=== PATIENT | female | born 1985 | race Caucasian/White ===

== ENCOUNTER 2019-06-25 02:48 | Inpatient (IN) ==
[2019-06-25] MEDS ORDERED: *HR* FentaNYL (PF) 100 MCG/2 ML VIAL IVP PRN (03:10)
[2019-06-25] MEDS ORDERED: Naloxone 0.4 MG/ML INJ IVP PRN (03:10)
[2019-06-25] MEDS ORDERED: Lidocaine 1% 20 ML MDV INFILT PRN (03:10)
[2019-06-25] MEDS ORDERED: Metoclopramide 10 MG/2 ML VIAL IVP PRN (03:10)
[2019-06-25] MEDS ORDERED: Famotidine 20 MG/2 ML VIAL IVP PRN (03:10)
[2019-06-25] MEDS ORDERED: Ringers Solution, Lactated 1,000 ML IVC SCH (03:15)
[2019-06-25 03:31] LABS: Basophils % 0.3 %; Eosinophils # 0.2 K/mcL (0.0-0.6); Eosinophils % 1.9 %; Hematocrit 37.1 % (35.3-44.9); Hemoglobin 12.6 g/dL (11.5-15.4); Immature Granulocytes % 0.6 % (0-4); Lymphocytes # 2.5 K/mcL (0.6-4.6); Lymphocytes % 20.3 %; Mean Corpuscular Hemoglobin 31.5 pg (28.0-33.3); Mean Corpuscular Volume 92.8 fL (83.0-100.0); Mean Platelet Volume 10.1 fL (9.4-12.4); Monocytes # 0.7 K/mcL (0.0-1.3); Monocytes % 5.5 %; Neutrophils # 8.8 K/mcL (1.6-8.9); Platelet Count 253 K/mcL (140-400); Red Cell Distribution Width 12.8 % (11.5-14.5); Segmented Neutrophils % 71.4 %; White Blood Count 12.3 K/mcL (4.3-11.1)
[2019-06-25 03:43] LABS: Amphetamine Screen,Urine Negative ng/mL (Cutoff=1000); Barbiturate Screen,Urine Negative ng/mL (Cutoff=200); Benzodiazepines Screen,Urine Negative ng/mL (Cutoff=200); Cannabinoid Screen,Urine Negative ng/mL (Cutoff = 50); Cocaine Screen,Urine Negative ng/mL (Cutoff= 300); Opiate Screen,Urine Negative ng/mL (Cutoff=300); Phencyclidine Screen,Urine Negative ng/mL (Cutoff=25)
[2019-06-25] MEDS ORDERED: EPHEDrine 50 MG/ML VIAL IVP PRN (04:38)
[2019-06-25] MEDS ORDERED: Epidural Premix (fent/bupiv) 110 ML EP SCH (04:45)
[2019-06-25] MEDS ORDERED: Acetaminophen 325 MG TABLET PO PRN (08:08)
[2019-06-25] MEDS ORDERED: Lanolin 7 G OINT...G. TP PRN (08:08)
[2019-06-25] MEDS ORDERED: Benzocaine/Menthol 56 GM AEROSOL SPRAY TP PRN (08:08)
[2019-06-25] MEDS ORDERED: Oxytocin 20 units/ LR 1000 mL 20 UNIT/1,000 ML BAG IVC SCH (08:08)
[2019-06-25] MEDS: Prenatal Vit/FA 1 EACH TABLET PO SCH (09:47)
[2019-06-25] MEDS: Ibuprofen 600 MG TABLET PO PRN ×2 (15:31→21:54)
[2019-06-26 04:45] LABS: Basophils # 0.1 K/mcL (0.0-0.2); Basophils % 0.7 %; Eosinophils # 0.4 K/mcL (0.0-0.6); Eosinophils % 2.2 %; Hematocrit 35.4 % (35.3-44.9); Immature Granulocytes % 0.5 % (0-4); Lymphocytes # 3.4 K/mcL (0.6-4.6); Lymphocytes % 20.8 %; Mean Corpuscular HGB Conc 33.9 g/dL (31.6-35.5); Mean Corpuscular Hemoglobin 31.4 pg (28.0-33.3); Mean Corpuscular Volume 92.7 fL (83.0-100.0); Mean Platelet Volume 10.1 fL (9.4-12.4); Monocytes # 1.1 K/mcL (0.0-1.3); Monocytes % 6.4 %; Neutrophils # 11.4 K/mcL (1.6-8.9); Platelet Count 250 K/mcL (140-400); Red Blood Count 3.82 M/mcL (3.82-4.97); Red Cell Distribution Width 13.1 % (11.5-14.5); Segmented Neutrophils % 69.4 %; White Blood Count 16.4 K/mcL (4.3-11.1)
[2019-06-26] MEDS: Ibuprofen 600 MG TABLET PO PRN (06:05)
[2019-06-26 07:45] VITALS: BP 106/76
[2019-06-26] MEDS: Prenatal Vit/FA 1 EACH TABLET PO SCH (09:10)
== END 2019-06-26 11:40 | disposition home or self-care (01) | DRG 807 ==
LOC: 1NENULAB 02:48 → 1NENUOBS 08:28
PROVIDERS: ADMIT Advanced Practice Midwife; ATTEND Advanced Practice Midwife

== ENCOUNTER 2019-08-28 11:40 | Observation (INO) ==
[2019-08-28 12:37] LABS: Bilirubin,Urine Negative (Negative); Blood,Urine Negative (Negative); Clarity,Urine Clear (Clear); Color,Urine Yellow (Yellow); Glucose,Urine (UA) Normal (Normal); Ketones,Urine Negative (Negative); Leukocyte Esterase,Urine Small (Negative); Nitrite,Urine Negative (Negative); PH,Urine 7.5 pH Units (5.0-8.0); Protein,Urine Negative (Neg-Trace); Specific Gravity,Urine 1.017 (1.010-1.025); Urobilinogen,Urine Normal (Normal)
[2019-08-28 12:40] LABS: Bacteria,Urine None Seen per hpf (None-Few); Hyaline Casts,Urine None Seen per lpf (None-Few); RBC,Urine 0-3 per hpf (0-3); Squamous Epithelial Cell,Urine Many per lpf (None-Few)
[2019-08-28 12:47] LABS: Hematocrit 39.8 % (35.3-44.9); Hemoglobin 13.5 g/dL (11.5-15.4); Mean Corpuscular HGB Conc 33.9 g/dL (31.6-35.5); Mean Corpuscular Hemoglobin 30.8 pg (28.0-33.3); Mean Corpuscular Volume 90.9 fL (83.0-100.0); Mean Platelet Volume 10.2 fL (9.4-12.4); Platelet Count 304 K/mcL (140-400); Red Blood Count 4.38 M/mcL (3.82-4.97); Red Cell Distribution Width 11.6 % (11.5-14.5); White Blood Count 8.7 K/mcL (4.3-11.1)
[2019-08-28 13:06] LABS: BUN/Creatinine Ratio 15 (6-26); Blood Urea Nitrogen 9 mg/dL (6-20); Calcium 9.7 mg/dL (8.6-10.3); Carbon Dioxide 26 mEq/L (23-29); Chloride 105 mEq/L (98-107); Glucose 93 mg/dL (70-105); Osmolality,Calculated 284 (280-300); Sodium 138 mEq/L (136-145); eGFR For African Americans > 60 (> 60); eGFR For Non-African Americans > 60 (> 60)
[2019-08-28] MEDS ORDERED: Gadolinium Contrast Agent (WT Based) IV PRN (13:43)
[2019-08-28] MEDS ORDERED: Ketorolac 30 MG/ML VIAL IVP ONE (13:45)
[2019-08-28] MEDS ORDERED: Prochlorperazine 10 MG/2 ML VIAL IVP STA (13:53)
[2019-08-28] MEDS ORDERED: 0.9 % Sodium Chloride 1,000 ML IVC ONE (14:08)
[2019-08-28] MEDS ORDERED: Isovue-370 500 ML BOTTLE IVP ONE (18:08)
[2019-08-28] MEDS ORDERED: Naloxone 0.4 MG/ML INJ IVP PRN (20:51)
[2019-08-28] MEDS ORDERED: Acetaminophen 325 MG TABLET PO PRN (20:51)
[2019-08-28] MEDS: 0.9 % Sodium Chloride 1,000 ML IVC SCH (21:46)
[2019-08-29 06:25] LABS: Basophils # 0.1 K/mcL (0.0-0.2); Basophils % 0.9 %; Eosinophils # 0.4 K/mcL (0.0-0.6); Hematocrit 35.8 % (35.3-44.9); Hemoglobin 12.2 g/dL (11.5-15.4); Immature Granulocytes % 0.1 % (0-4); Lymphocytes # 2.5 K/mcL (0.6-4.6); Lymphocytes % 35.7 %; Mean Corpuscular HGB Conc 34.1 g/dL (31.6-35.5); Mean Corpuscular Hemoglobin 31.2 pg (28.0-33.3); Mean Corpuscular Volume 91.6 fL (83.0-100.0); Mean Platelet Volume 10.2 fL (9.4-12.4); Monocytes # 0.5 K/mcL (0.0-1.3); Monocytes % 7.2 %; Neutrophils # 3.6 K/mcL (1.6-8.9); Platelet Count 277 K/mcL (140-400); Red Blood Count 3.91 M/mcL (3.82-4.97); Red Cell Distribution Width 11.8 % (11.5-14.5); Segmented Neutrophils % 51.1 %
[2019-08-29 06:28] LABS: INR 1.1; Prothrombin Time 12.5 Seconds (9.4-12.1)
[2019-08-29 06:45] LABS: Alanine Aminotransferase 21 Units/L (7-52); Albumin/Globulin Ratio 1.6 (1.1-2.2); Alkaline Phosphatase 73 Units/L (34-104); Aspartate Amino Transferase 20 Units/L (13-39); BUN/Creatinine Ratio 10 (6-26); Bilirubin,Total 0.5 mg/dL (0.3-1.0); Blood Urea Nitrogen 7 mg/dL (6-20); Carbon Dioxide 25 mEq/L (23-29); Chloride 110 mEq/L (98-107); Globulin 2.5 g/dL (2.4-3.5); Glucose 86 mg/dL (70-105); Magnesium 1.9 mg/dL (1.6-2.6); Osmolality,Calculated 289 (280-300); Phosphorous 4.2 mg/dL (2.7-4.5); Potassium 3.5 mEq/L (3.5-5.1); Sodium 141 mEq/L (136-145); Total Protein 6.5 g/dL (6.4-8.9); eGFR For African Americans > 60 (> 60); eGFR For Non-African Americans > 60 (> 60)
[2019-08-29 06:48] LABS: Troponin I 0.03 ng/mL (< 0.04)
[2019-08-29 06:52] LABS: Chol/HDL Ratio 3.2 (0-4.9)
[2019-08-29 08:01] LABS: Estimated Average Glucose 114 mg/dl
[2019-08-29] MEDS: 0.9 % Sodium Chloride 1,000 ML IVC SCH (08:26)
[2019-08-29] MEDS ORDERED: Gadolinium Contrast Agent (WT Based) IV PRN (09:34)
[2019-08-29 11:17] VITALS: BP 121/71
== END 2019-08-29 14:23 | disposition home or self-care (01) ==
LOC: 3BNU 11:40 → EMEROOARM 11:40 → 3BNU 18:50
PROVIDERS: ADMIT Internal Medicine; ATTEND Internal Medicine

== ENCOUNTER 2022-01-09 22:37 | Inpatient (IN) ==
[2022-01-09] MEDS ORDERED: *HR* Nalbuphine 10 MG/ML AMPUL IV PRN (22:40)
[2022-01-09] MEDS ORDERED: Famotidine 20 MG/2 ML VIAL IVP PRN (22:40)
[2022-01-09] MEDS ORDERED: Metoclopramide 10 MG/2 ML VIAL IVP PRN (22:40)
[2022-01-09] MEDS ORDERED: Lidocaine 1% 20 ML MDV INFILT PRN (22:40)
[2022-01-09] MEDS ORDERED: Ringers Solution, Lactated 1,000 ML IVC SCH (22:45)
[2022-01-09] MEDS ORDERED: Oxytocin 30 UNIT/503 ML BAG IVC SCH (22:45)
[2022-01-09 23:34] LABS: Basophils # 0.1 K/mcL (0.0-0.2); Basophils % 0.5 %; Eosinophils # 0.2 K/mcL (0.0-0.6); Eosinophils % 2.1 %; Hematocrit 31.6 % (35.3-44.9); Hemoglobin 10.9 g/dL (11.5-15.4); Immature Granulocytes % 0.4 % (0-4); Lymphocytes # 1.9 K/mcL (0.6-4.6); Lymphocytes % 18.6 %; Mean Corpuscular HGB Conc 34.5 g/dL (31.6-35.5); Mean Corpuscular Volume 87.1 fL (83.0-100.0); Mean Platelet Volume 10.8 fL (9.4-12.4); Monocytes # 0.8 K/mcL (0.0-1.3); Monocytes % 7.4 %; Neutrophils # 7.4 K/mcL (1.6-8.9); Platelet Count 271 K/mcL (140-400); Red Blood Count 3.63 M/mcL (3.82-4.97); Red Cell Distribution Width 13.1 % (11.5-14.5); White Blood Count 10.4 K/mcL (4.3-11.1)
[2022-01-09 23:39] LABS: Amphetamine Screen,Urine Negative ng/mL (Cutoff=1000); Barbiturate Screen,Urine Negative ng/mL (Cutoff=200); Benzodiazepines Screen,Urine Negative ng/mL (Cutoff=200); Cannabinoid Screen,Urine Negative ng/mL (Cutoff = 50); Cocaine Screen,Urine Negative ng/mL (Cutoff= 300); Opiate Screen,Urine Negative ng/mL (Cutoff=300); Phencyclidine Screen,Urine Negative ng/mL (Cutoff=25)
[2022-01-10] MEDS ORDERED: Epidural Premix (fent/bupiv) 110 ML EP ONE (01:54)
[2022-01-10] MEDS ORDERED: *HR* FentaNYL (PF) 100 MCG/2 ML VIAL ONE (01:55)
[2022-01-10] MEDS ORDERED: Ropivacaine/PF 0.2% 20 ML VIAL ONE (01:55)
[2022-01-10] MEDS ORDERED: EPHEDrine sulfate 50 MG/10 ML VIAL IVP PRN (02:32)
[2022-01-10] MEDS ORDERED: Epidural Premix (fent/bupiv) 110 ML EP SCH (02:45)
[2022-01-10] MEDS ORDERED: Ibuprofen 600 MG TABLET PO ONE (06:41)
[2022-01-10] MEDS ORDERED: Oxytocin 30 UNIT/503 ML BAG IVC SCH (09:15)
[2022-01-10] MEDS ORDERED: Lanolin 7 G OINT...G. TP PRN (09:15)
[2022-01-10] MEDS ORDERED: Ondansetron ODT 4 MG TAB.RAPDIS SL PRN (09:15)
[2022-01-10] MEDS ORDERED: Benzocaine/Menthol 56 GM AEROSOL SPRAY TP PRN (09:15)
[2022-01-10] MEDS: Prenatal Vit/FA 1 EACH TABLET PO SCH (09:53)
[2022-01-10] MEDS: Acetaminophen 325 MG TABLET PO SCH ×2 (09:54→16:15)
[2022-01-10] MEDS: Ibuprofen 600 MG TABLET PO SCH ×2 (14:07→19:59)
[2022-01-11] MEDS: Ibuprofen 600 MG TABLET PO SCH ×2 (03:56→10:00)
[2022-01-11] MEDS: Acetaminophen 325 MG TABLET PO SCH ×2 (03:57→09:59)
[2022-01-11 07:39] VITALS: BP 119/82; PULSE 78; TEMP 98; O2SAT 98
[2022-01-11] MEDS: Prenatal Vit/FA 1 EACH TABLET PO SCH (10:00)
== END 2022-01-11 11:20 | disposition home or self-care (01) | DRG 807 ==
LOC: 1NENULAB 22:37 → 1NENUOBS 01-10 08:59
PROVIDERS: ADMIT Advanced Practice Midwife; ATTEND Advanced Practice Midwife